=== PATIENT | male | born 1930 | race Two or more races ===

== ENCOUNTER 2017-02-19 07:48 | Inpatient (IN) | payer MEDICARE ==
[~2017-02-19] VITALS: Ht 170.2 cm; Wt 77.2 kg
[2017-02-19] MEDS ORDERED: BACITRACIN ZINC OINT 500U/GM, 0.9 GM ONE (08:20)
[2017-02-19] MEDS ORDERED: SODIUM CHLORIDE FLUSH 10ML SYR IVF ONE (08:30)
[2017-02-19] MEDS ORDERED: SODIUM CHLORIDE 0.9% 1,000ML IVBOLUS ONE (08:30)
[2017-02-19] MEDS ORDERED: ASPI81TA50 PO (08:44)
[2017-02-19] MEDS ORDERED: CARV12.52 PO (08:44)
[2017-02-19] MEDS ORDERED: B12/1TAB PO (08:45)
[2017-02-19 09:05] LABS: BLOOD UREA NITROGEN 18 mg/dL (7-18)
[2017-02-19 09:08] LABS: ASPARTATE AMINO TRANSFERASE 20 U/L (15-37)
[2017-02-19 09:11] LABS: IS PT STATUS REG ER OR PRE ER? YES
[2017-02-19 10:44] VITALS: BP 152/96
[2017-02-19 10:50] VITALS: BP 152/96
[2017-02-19] MEDS ORDERED: ENALAPRILAT 1.25 MG/ML, 2ML IVPush PRN (13:30)
[2017-02-19] MEDS: SODIUM CHLORIDE 0.9% 1,000 ML IV SCH ×2 (14:54→23:39)
[2017-02-19 15:41] VITALS: BP 131/80
[2017-02-19] MEDS: ENOXAPARIN 40 MG/0.4 ML SQ SCH (16:35)
[2017-02-19 19:48] VITALS: BP 152/83
[2017-02-19] MEDS: CARVEDILOL 6.25 MG TABLET PO SCH (21:00)
[2017-02-20 01:28] VITALS: BP 163/83
[2017-02-20 06:30] LABS: ASPARTATE AMINO TRANSFERASE 21 U/L (15-37); BLOOD UREA NITROGEN 18 mg/dL (7-18); C-REACTIVE PROTEIN, QUANT 0.66 mg/dL (0.02-0.49)
[2017-02-20] MEDS ORDERED: ASPIRIN 81 MG TABLET EC PO SCH (09:00)
[2017-02-20] MEDS: CARVEDILOL 6.25 MG TABLET PO SCH ×2 (09:00→20:57)
[2017-02-20] MEDS ORDERED: MAGNESIUM SULFATE PMX 2GM/50ML 50 ML IV ONE (10:00)
[2017-02-20 10:09] VITALS: BP 171/74
[2017-02-20] MEDS: SODIUM CHLORIDE 0.9% 1,000 ML IV SCH ×2 (10:24→20:54)
[2017-02-20 13:23] VITALS: BP 148/78
[2017-02-20] MEDS: ENOXAPARIN 40 MG/0.4 ML SQ SCH (16:30)
[2017-02-20 20:02] VITALS: BP 166/76
[2017-02-21 01:44] VITALS: BP 166/67
[2017-02-21] MEDS: SODIUM CHLORIDE 0.9% 1,000 ML IV SCH ×2 (07:00→17:00)
[2017-02-21 07:12] VITALS: BP 157/77
[2017-02-21] MEDS: CARVEDILOL 6.25 MG TABLET PO SCH (09:00)
[2017-02-21 12:47] VITALS: BP 172/91
[2017-02-21] MEDS: ENOXAPARIN 40 MG/0.4 ML SQ SCH (16:30)
[2017-02-21 18:52] VITALS: BP 193/109
[2017-02-22 01:46] VITALS: BP 197/131
[2017-02-22] MEDS: SODIUM CHLORIDE 0.9% 1,000 ML IV SCH ×2 (02:44→16:16)
[2017-02-22] MEDS: LABETALOL 5MG/ML, 20ML IVPush PRN (04:02)
[2017-02-22] MEDS: hydrALAzine 20 MG/ML, 1ML IVPush PRN (05:50)
[2017-02-22 06:16] LABS: BLOOD UREA NITROGEN 19 mg/dL (7-18)
[2017-02-22 08:29] VITALS: BP 116/69
[2017-02-22 12:28] VITALS: BP 99/61
[2017-02-22] MEDS ORDERED: SODIUM CHLORIDE 0.9%, 500ML IVBOLUS ONE ×2 (15:00→16:15)
[2017-02-22] MEDS: ENOXAPARIN 40 MG/0.4 ML SQ SCH (16:16)
[2017-02-22 16:45] VITALS: BP 120/83
[2017-02-22 19:59] VITALS: BP 145/74
[2017-02-23 03:06] VITALS: BP 163/78
[2017-02-23 06:20] LABS: BLOOD UREA NITROGEN 18 mg/dL (7-18)
[2017-02-23 07:41] VITALS: BP 156/90
[2017-02-23 07:58] VITALS: BP 156/90
[2017-02-23] MEDS: SODIUM CHLORIDE 0.9% 1,000 ML IV SCH ×2 (10:31→17:15)
[2017-02-23 14:30] VITALS: BP 146/78
[2017-02-23] MEDS: ENOXAPARIN 40 MG/0.4 ML SQ SCH (16:15)
[2017-02-23 19:45] VITALS: BP 175/85
[2017-02-24] MEDS: SODIUM CHLORIDE 0.9% 1,000 ML IV SCH ×2 (00:19→15:43)
[2017-02-24 02:04] VITALS: BP 206/78
[2017-02-24] MEDS: LABETALOL 5MG/ML, 20ML IVPush PRN (02:31)
[2017-02-24] MEDS: hydrALAzine 20 MG/ML, 1ML IVPush PRN (03:41)
[2017-02-24] MEDS ORDERED: FUROSEMIDE 40 MG/4 ML IV ONE (04:00)
[2017-02-24 05:52] LABS: BLOOD UREA NITROGEN 18 mg/dL (7-18)
[2017-02-24 08:18] VITALS: BP 172/95
[2017-02-24 14:29] VITALS: BP 155/87
[2017-02-24] MEDS: ENOXAPARIN 40 MG/0.4 ML SQ SCH (15:46)
[2017-02-24 19:01] VITALS: BP 167/80
[2017-02-25] MEDS: SODIUM CHLORIDE 0.9% 1,000 ML IV SCH ×2 (03:44→11:45)
[2017-02-25 03:47] VITALS: BP 172/101
[2017-02-25] MEDS: LABETALOL 5MG/ML, 20ML IVPush PRN (03:51)
[2017-02-25 08:56] VITALS: BP_SYST 166; BP_SYST 174; BP_DIAS 80; BP_DIAS 94
[2017-02-25] MEDS ORDERED: SCOPOLAMINE PATCH, 1.5MG PATCH.TD72 TD ONE (10:30)
== END 2017-02-25 12:42 | disposition hospice, home (50) | DRG 70 ==
LOC: ED 09:32 → EDIP 09:55 → 3NE 10:23
PROVIDERS: ADMIT Hospitalist; ATTEND Internal Medicine
PROC: 0T9B70Z Drainage of Bladder with Drainage Device, Via Natural or Artificial Opening (ICD-10-PCS; principal; 2017-02-19)
DX: G93.41 Metabolic encephalopathy (principal); R53.2 Functional quadriplegia; N17.0 Acute kidney failure with tubular necrosis; I50.32 Chronic diastolic (congestive) heart failure; W18.30XA Fall on same level, unspecified, initial encounter; I11.0 Hypertensive heart disease with heart failure; D72.829 Elevated white blood cell count, unspecified; E83.42 Hypomagnesemia; F02.80 Dementia in other diseases classified elsewhere, unspecified severity, without behavioral disturbance, psychotic disturbance, mood disturbance, and anxiety; G30.1 Alzheimer's disease with late onset; I08.0 Rheumatic disorders of both mitral and aortic valves; Z51.5 Encounter for palliative care; Z66 Do not resuscitate; I25.10 Atherosclerotic heart disease of native coronary artery without angina pectoris; I25.2 Old myocardial infarction; I73.9 Peripheral vascular disease, unspecified; R29.6 Repeated falls; S80.212A Abrasion, left knee, initial encounter; S80.211A Abrasion, right knee, initial encounter; S70.312A Abrasion, left thigh, initial encounter; S70.212A Abrasion, left hip, initial encounter; W19.XXXA Unspecified fall, initial encounter; Y93.89 Activity, other specified; Y92.89 Other specified places as the place of occurrence of the external cause; Z95.1 Presence of aortocoronary bypass graft; Z79.82 Long term (current) use of aspirin; R13.10 Dysphagia, unspecified
CPT/HCPCS: 36415; 70450; 71010; 80048; 80053; 81001; 82550; 82607; 83735; 84100; 84439; 84443; 84484; 85025; 85651; 86140; 93005; 93308; 93321; 93325; 95819; 96360; 96361; J1650; J1940; J0360; J3475; J7030; J7040